=== PATIENT | female | born 1985 | race Hispanic/Latino ===

== ENCOUNTER 2019-05-03 12:50 | Inpatient (IN) | payer OTHER ==
[~2019-05-03] VITALS: Ht 170.2 cm; Wt 88.3 kg
[2019-05-03] VITALS (8 sets, daily range): BP systolic 110–130; BP diastolic 61–80
[2019-05-03] MEDS ORDERED: IOHEXOL-350 50ML VIAL IV ONE (12:58)
[2019-05-03] MEDS ORDERED: HEPARIN SODIUM 1000UNIT/ML 10ML VIAL ONE (12:58)
[2019-05-03] MEDS ORDERED: LIDOCAINE HCL 2% 20ML ONE (12:58)
[2019-05-03] MEDS ORDERED: IOHEXOL 350 MG/ML 100ML INFUS..BTL IV ONE (12:58)
[2019-05-03] MEDS ORDERED: LIDOCAINE PF 2% 5ML ABBOJECT ONE (12:59)
[2019-05-03] MEDS ORDERED: DOPAMINE HCL 400 MG/D5%-WATER 0 ML IV ONE (12:59)
[2019-05-03] MEDS ORDERED: ATROPINE SULFATE 0.1 MG/ML 10 ML SYG IVP ONE (12:59)
[2019-05-03] MEDS ORDERED: METOPROLOL TARTRATE 1 MG/ML 5ML VIAL IV ONE ×2 (13:37→13:57)
[2019-05-03] MEDS: NITROGLYCERIN 1GM/1 INCH PACKET TD SCH ×2 (14:30→21:50)
[2019-05-03] MEDS ORDERED: PHARMACY COMMUNICATION MISC SCH (14:45)
--- NOTE | 2019-05-03 15:15 | NUR ---
ARRIVAL TO FLOOR FROM [facility]OUNTS RECEIVABLE ACCOUNTANT PT IS AAOX3 DENIES CP DENIES SOB DENIES NV. RIGHT GROIN DSTAT DRESSING IN PLACE CLEAN DRY AND INTACT, BEDREST IN PROGRESS, FAMILY IS AT BEDSIDE.
[2019-05-03] MEDS: DILTIAZEM HCL 120 MG CAP.SR.24H PO SCH (15:38)
[2019-05-03] MEDS ORDERED: METF-445 PO (15:43)
[2019-05-03] MEDS ORDERED: LOSA50TA64 PO (15:43)
[2019-05-03] MEDS ORDERED: INSULIN HUMULIN R 100 UNIT/ML 3ML ONE (22:00)
[2019-05-03 22:34] LABS: AMPHET/METH SCREEN,URINE NEGATIVE (NEGATIVE); BARBITURATE SCREEN, URINE NEGATIVE (NEGATIVE); BENZODIAZEPINES SCREEN,URINE NEGATIVE (NEGATIVE); CANNABINOID SCREEN,URINE NEGATIVE (NEGATIVE); COCAINE SCREEN,URINE NEGATIVE (NEGATIVE); OPIATE SCREEN,URINE NEGATIVE (NEGATIVE); PHENCYCLIDINE SCREEN,URINE NEGATIVE (NEGATIVE)
[2019-05-04 04:00] VITALS: BP 110/68
[2019-05-04 04:25] LABS: MEAN CORPUSCULAR HGB CONC 33.7 g/dL (32.0-36.0); PLATELET COUNT (AUTO) 226 K/uL (130-400); RED BLOOD CELL COUNT(AUTO) 4.07 MIL/uL (4.00-5.50); RED CELL DISTRIBUTION WIDTH 12.8 % (11.0-15.5); WHITE BLOOD COUNT (AUTO) 7.5 K/uL (4.8-10.8)
[2019-05-04 05:11] LABS: CREATININE 0.6 mg/dL (0.5-1.5); POTASSIUM 3.6 mmol/L (3.5-5.1)
[2019-05-04 05:16] LABS: TROPONIN I 14.41 ng/mL (0.00-0.06)
--- NOTE | 2019-05-04 05:31 | NUR ---
TROPONIN 14.4, CK 462, REPORTED LEVELS TO SERVANDO TORRE, PENDING CARDIAC CONSULT/REASSESSMENT FOR 05/04/19
[2019-05-04] MEDS: NITROGLYCERIN 1GM/1 INCH PACKET TD SCH ×3 (06:26→22:04)
[2019-05-04] MEDS: INSULIN HUMULIN R 100 UNIT/ML 3ML SQ SCH ×3 (06:31→16:12)
[2019-05-04 07:51] VITALS: BP 131/62
[2019-05-04] MEDS: DILTIAZEM HCL 120 MG CAP.SR.24H PO SCH (08:22)
[2019-05-04 11:52] VITALS: BP 113/69
[2019-05-04 13:16] LABS: T4 (THYROXINE) 7.6 ug/dL (4.7-13.3); THYROID STIMULATING HORMONE 0.04 uIU/mL (0.36-3.74)
[2019-05-04 15:23] VITALS: BP 124/84
--- NOTE | 2019-05-04 16:22 | NUR ---
DC PLAN VISITED WITH PATIENT. PATIENT LIVES WITH SPOUSE. INDEPENDENT ABLE TO PERFORM ADL'S. PATIENT HAS NO SERVICES OR DME'S. FEELS SAFE TO RETURN HOME. Addendum: 05/04/19 at 1624 by ADE PANDYA RN CM Amended: Links added.
[2019-05-04] MEDS: PROPRANOLOL HCL 10 MG TAB PO SCH (18:28)
[2019-05-04 20:03] VITALS: BP 122/79
[2019-05-04] MEDS ORDERED: INSULIN GLARGINE 100 UNITS/ML 10 ML VIAL SQ SCH (21:00)
[2019-05-04] MEDS: INSULIN LISPRO 100 UNIT/ML 3ML SQ SCH (21:32)
[2019-05-04 23:55] VITALS: BP 118/74
[2019-05-05] MEDS: PROPRANOLOL HCL 10 MG TAB PO SCH (03:30)
[2019-05-05 04:23] VITALS: BP 117/76
[2019-05-05 05:20] LABS: HEMATOCRIT 34.6 % (36-48); MEAN CORPUSCULAR HEMOGLOBIN 28.6 pg (27.0-33.0); MEAN CORPUSCULAR HGB CONC 33.5 g/dL (32.0-36.0); MEAN CORPUSCULAR VOLUME 85.4 fL (79-99); PLATELET COUNT (AUTO) 214 K/uL (130-400); RED BLOOD CELL COUNT(AUTO) 4.05 MIL/uL (4.00-5.50); RED CELL DISTRIBUTION WIDTH 12.7 % (11.0-15.5)
[2019-05-05 05:35] LABS: B-TYPE NATRIURETIC PEPTIDE 46 pg/mL (0-100)
[2019-05-05] MEDS: NITROGLYCERIN 1GM/1 INCH PACKET TD SCH (05:47)
[2019-05-05 05:59] LABS: CREATININE 0.5 mg/dL (0.5-1.5); CRP QUANTITATIVE 21.6 mg/L (0.00-9.0); MAGNESIUM 1.7 mg/dL (1.80-2.40); PHOSPHORUS 4.2 mg/dL (2.5-4.9); POTASSIUM 3.4 mmol/L (3.5-5.1); THYROID STIMULATING HORMONE 0.05 uIU/mL (0.36-3.74)
[2019-05-05] MEDS: INSULIN LISPRO 100 UNIT/ML 3ML SQ SCH (06:37)
[2019-05-05 07:12] LABS: ERYTHROCYTE SEDIMENTATION RATE 75 MM/HR (0-20)
[2019-05-05] MEDS ORDERED: INSULIN LISPRO 100 UNIT/ML 3ML SQ SCH (07:30)
--- NOTE | 2019-05-05 07:40 | NUR ---
ASSESSMENT ENCOUNTERED PT UP IN CHAIR, A&OX3,CALM COOPERATIVE AND DOES NOT APPEAR TO BE IN ANY DISTRESS NOR ANY NEURO DEFICITS PRESENT. PT DENIES PAIN, SOB, NAUSEA. RT GROIN SOFT NONTENDER WITH NO OOZING OR HEMATOMA PRESENT. DP/PT PULSES PALPABLE. PT IS AMBULATORY, GAIT STEADY AND STRONG WITH STAND BY ASSIST. PT IS NPO PENDING CT OF CHEST/ABDOMEN. CALL LIGHT WITHIN REACH, FAMILY AT BEDSIDE.
[2019-05-05 07:54] VITALS: BP 110/68
[2019-05-05] MEDS ORDERED: IOHEXOL-350 75 ML VIAL IV ONE (07:59)
[2019-05-05] MEDS ORDERED: DILTIAZEM HCL 120 MG CAP.SR.24H PO SCH (09:00)
[2019-05-05] MEDS ORDERED: MAGNESIUM 2GM PREMIX 50ML 50 ML IV SCH (10:00)
[2019-05-05] MEDS ORDERED: POTASSIUM CHLORIDE 20 MEQ ERTAB PO SCH (10:00)
[2019-05-05] MEDS ORDERED: METF-446 PO (10:22)
[2019-05-05] MEDS ORDERED: GLIP5TAB11 PO (10:22)
[2019-05-05] MEDS ORDERED: DILT120C89 PO (10:22)
--- NOTE | 2019-05-05 12:00 | NUR ---
DR CARRILLO AT BEDSIDE UPDATE GIVEN, ORDERS RECEIVED.
--- NOTE | 2019-05-05 13:00 | NUR ---
DISCHARGE INSTRUCTIONS GIVEN, PIV REMOVED AND INTACT, DISCHARGED HOME TO FAMILY VEHICLE VIA WHEELCHAIR.
== END 2019-05-05 12:59 | disposition home or self-care (01) | DRG 282 ==
LOC: EDHIP 13:21 → 2DH 15:26
PROVIDERS: ADMIT Internal Medicine; ATTEND Internal Medicine
PROC: B2111ZZ Fluoroscopy of Multiple Coronary Arteries using Low Osmolar Contrast (ICD-10-PCS; principal; 2019-05-03)
PROC: B2151ZZ Fluoroscopy of Left Heart using Low Osmolar Contrast (ICD-10-PCS; 2019-05-03)
PROC: 4A023N7 Measurement of Cardiac Sampling and Pressure, Left Heart, Percutaneous Approach (ICD-10-PCS; 2019-05-03)
PROC: B31P1ZZ Fluoroscopy of Thoraco-Abdominal Aorta using Low Osmolar Contrast (ICD-10-PCS; 2019-05-03)
DX: I21.4 Non-ST elevation (NSTEMI) myocardial infarction (principal); I24.9 Acute ischemic heart disease, unspecified; E11.9 Type 2 diabetes mellitus without complications; I10 Essential (primary) hypertension; E78.5 Hyperlipidemia, unspecified; E66.9 Obesity, unspecified; F17.200 Nicotine dependence, unspecified, uncomplicated; M47.815 Spondylosis without myelopathy or radiculopathy, thoracolumbar region; Z68.30 Body mass index [BMI] 30.0-30.9, adult; Z79.84 Long term (current) use of oral hypoglycemic drugs; Z79.899 Other long term (current) drug therapy; Z88.0 Allergy status to penicillin; Z90.721 Acquired absence of ovaries, unilateral; Z82.3 Family history of stroke; Z83.3 Family history of diabetes mellitus; Z82.49 Family history of ischemic heart disease and other diseases of the circulatory system
CPT/HCPCS: 36415; 71250; 71275; 76536; 80048; 80305; 82550; 82948; 83036; 83735; 83874; 83880; 84100; 84436; 84439; 84443; 84479; 84480; 84481; 84484; 85027; 85347; 85651; 86140; 93005; 93306; 93308; 93458; 93567; C1887; C1894; G0378; J0461; J1265; J1644; J1815; J2001; J3475; J3490; Q9967